=== PATIENT | male | born 1980 | race Caucasian/White ===

== ENCOUNTER 2017-03-16 09:35 | Emergency (ER) | payer BC, OTHER ==
[2017-03-16 09:56] VITALS: BMI 26.8
[2017-03-16 09:58] VITALS: BP 148/86; PULSE 89; RESP 16; TEMP 96; O2SAT 100
--- NOTE | 2017-03-16 11:09 | CT ---
PROCEDURE: CT HEAD WITHOUT CONTRAST. HISTORY: pain COMPARISON: None available. TECHNIQUE: Axial computed tomography images were obtained through the head/brain without intravenous contrast. Radiation dose: Total exam DLP = 937 mGy-cm. This CT exam was performed using one or more of the following dose reduction techniques: Automated exposure control, adjustment of the mA and/or kV according to patient size, and/or use of iterative reconstruction technique. FINDINGS: HEMORRHAGE: No intracranial hemorrhage. BRAIN: No mass effect or edema. No atrophy or chronic microvascular ischemic changes. VENTRICLES: Unremarkable. No hydrocephalus. CALVARIUM: Unremarkable. PARANASAL SINUSES: Unremarkable as visualized. No significant inflammatory changes. MASTOID AIR CELLS: Unremarkable as visualized. No inflammatory changes. OTHER FINDINGS: Retro-orbital regions are unremarkable. Pituitary gland is normal in size. No tonsillar ectopia is seen. Posterior fossa is unremarkable. No cortical effacement is noted. IMPRESSION: Normal CT of the Head.
--- NOTE | 2017-03-16 11:30 | ED PDOC ---
HPI: Headache Time Seen by Provider: 03/16/17 10:10 Chief Complaint (Nursing): Headache Chief Complaint (Provider): Head Pressure History Per: Patient History/Exam Limitations: no limitations Onset/Duration Of Symptoms: Other (x2 years) Current Symptoms Are (Timing): Still Present Quality: Pressure Preceeding Symptoms: None Additional Complaint(s): 36 year old male presents to the ED complaining of head, face and ear pain x2 years. The patient describes the feeling as a pressure in his head and also states that he feels as though his ear is draining. Patient also notes some neck pain. Denies nausea, vomiting, diarrhea, cough, congestion. Past Medical History Reviewed: Historical Data, Nursing Documentation, Vital Signs Vital Signs: Last Vital Signs Temp 96.0 F L 03/16/17 09:57 Pulse 89 03/16/17 09:57 Resp 16 03/16/17 09:57 BP 148/86 03/16/17 09:57 Pulse Ox 100 03/16/17 09:57 - Medical History PMH: No Chronic Diseases Denies: Chronic Kidney Disease - Surgical History Surgical History: No Surg Hx - Family History Family History: States: Unknown Family Hx - Living Arrangements Living Arrangements: With Family - Social History Current smoker - smoking cessation education provided: Yes (E-cigarett) Ex-Smoker (has not smoked in the last 12 months): Yes Alcohol: Other (yes a few days per week) Drugs: Denies - Home Medications Home Medications: Ambulatory Orders Medication Instructions Recorded Ibuprofen 600 mg PO Q6 #20 tab 08/15/14 - Allergies Allergies/Adverse Reactions: Allergies Allergy/AdvReac Type Severity Reaction Status Date / Time No Known Allergies Allergy Verified 08/15/14 16:47 Review of Systems ROS Statement: Except As Marked, All Systems Reviewed And Found Negative Constitutional: Positive for: Other (facial pain; head pressure) ENT: Positive for: Ear Pain. Negative for: Nose Congestion Respiratory: Negative for: Cough Gastrointestinal: Negative for: Nausea, Vomiting, Diarrhea Neurological: Positive for: Headache Physical Exam - Reviewed Nursing Documentation Reviewed: Yes Vital Signs Reviewed: Yes - Physical Exam Appears: Positive for: Non-toxic, No Acute Distress Head Exam: Positive for: ATRAUMATIC, NORMAL INSPECTION, NORMOCEPHALIC Skin: Positive for: Normal Color, Warm, Dry. Negative for: Rash Eye Exam: Positive for: Normal appearance, EOMI, PERRL. Negative for: Nystagmus ENT: Positive for: Normal ENT Inspection. Negative for: Nasal Congestion, Tonsillar Exudate, Tonsillar Swelling Neck: Positive for: Normal, Painless ROM, Supple Cardiovascular/Chest: Positive for: Regular Rate, Rhythm, Chest Non Tender. Negative for: Tachycardia Respiratory: Positive for: Normal Breath Sounds. Negative for: Wheezing, Respiratory Distress Gastrointestinal/Abdominal: Positive for: Normal Exam, Bowel Sounds, Soft. Negative for: Tenderness, Guarding, Rebound Back: Positive for: Normal Inspection. Negative for: L CVA Tenderness, R CVA Tenderness, Vertebral Tenderness Extremity: Positive for: Normal ROM. 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 Negative for : Motor/Sensory Deficits - ECG O2 Sat by Pulse Oximetry: 100 (RA) Pulse Ox Interpretation: Normal - CT Scan/US ct Other Rad Studies (CT/US): Read By Radiologist Other Rad Interpretation: no acute - Progress ED Course And Treament: 1317: Stable. AAOx3. Pain free. Tolerated PO. Fu with pcp. Medical Decision Making Medical Decision Makin Initial Impression 36 year old male presenting with ear, face and head pain Initial Plan: * CT head w/o contrast * Reevaluation Documented by Saba Cates acting as a scribe for Mejia Escobar MD. All medical record entries made by the Scribe were at my direction and personally dictated by me. I have reviewed the chart and agree that the record accurately reflects my personal performance of the history, physical exam, medical decision making, and the department course for this patient. I have also personally directed, reviewed, and agree with the discharge instructions and disposition. Disposition - Clinical Impression Clinical Impression: Headache - Patient ED Disposition Is Patient to be Admitted: No Counseled Patient/Family Regarding: Studies Performed, Diagnosis, Need For Followup - Disposition Referrals: [facility] [Outside] - 03/18/17 Disposition: Routine/Home Disposition Time: 13:17 Condition: STABLE Additional Instructions: Return if not better in 3 days. Instructions: General Headache (ED)
== END 2017-03-16 13:28 | disposition home or self-care (01) ==
LOC: H.ER 09:35
DX: R51 Headache (principal)